=== PATIENT | male | born 1965 | race Caucasian/White ===

== ENCOUNTER 2021-12-19 14:52 | Emergency (ER) | payer OTHER, SELFPAY ==
--- NOTE | ~2021-12-19 | XR_ITS ---
EXAM: XR shoulder LT min 2V DATE: 12/19/2021 16:35 HISTORY: NKI, LT STIFF NECK/SHOULDER . COMPARISON: None available. FINDINGS: Normal mineralization. No fracture or dislocation. No lytic or blastic lesion. Joint space s are maintained. No erosion or periosteal change. Soft tissues within normal limits. IMPRESSION: No acute osseous finding in the left shoulder. Reviewed, dictated and finalized at location K.
--- NOTE | ~2021-12-19 | XR_ITS ---
EXAM: XR cervical spine 4-5V DATE: 12/19/2021 16:35 HISTORY: NKI, LT STIFF NECK/SHOULDER . COMPARISON: None available. FINDINGS: Craniocervical association and atlantoaxial joint are aligned, with atlantoaxial degenerat renard change. No prevertebral soft tissue swelling. Cervical spine straightening as can occur with spas m or positioning. Vertebral bodies are aligned. Mild vertebral body height loss at C5. Mild disc spac e narrowing at C5-6 and C6-7. Anterior bridging osteophyte at C2-3. Lower cervical spine facet sclero sis. Cervicothoracic junction poorly visualized in the lateral view. IMPRESSION: Limited evaluation of the cervicothoracic junction in the lateral view. Mild vertebral kyaw dy height loss at C5. Mild multilevel degenerative disc disease and facet arthropathy. Reviewed, dictated and finalized at location K. IMPRESSION: Limited evaluation of the cervicothoracic junction in the lateral v iew. Mild vertebral body height loss at C5. Mild multilevel degenerative disc d isease and facet arthropathy.
[2021-12-19 15:00] VITALS: BP 164/92; PULSE 53; RESP 18; TEMP 36.9; O2SAT 100
--- NOTE | 2021-12-19 16:04 | ED.NECK ---
HPI - Neck Pain/Injury General Chief Complaint: Neck Pain/Injury Stated Complaint: poss pinched nerve in neck Time Seen by Provider: 12/19/21 15:20 Source: patient, RN notes reviewed and old records reviewed Mode of arrival: ambulatory Limitations: no limitations History of Present Illness HPI Narrative: 56 year old male who presents to [facility] care with complaints of left shoulder pain and left neck pain that he awoke with on the Friday morning. Patient denies any injury to his neck or shoulder. Patient has been taking some Ibuprofen and Aleve for his discomfort and used heat to area which has helped his discomfort but has not completed resolved his pain. Patient concerned he has pinched nerve in his neck, states that pain has improved but sme still there and at times he has some tingling in his right thumb. Patient has full ROM of left arm with strong pulses to left arm and brisk capillary refill. MD complaint: neck pain and other (left shoulder pain) Onset (ago): day(s) (5 days) Severity scale (1-10): 6 Quality: dull and aching Treatments prior to arrival: ibuprofen, naproxen and heat therapy Related Data Home Medications Medication Instructions Recorded Confirmed pravastatin 20 mg tablet 20 mg PO DAILY 12/19/21 12/19/21 Allergies Allergy/AdvReac Type Severity Reaction Status Date / Time No Known Allergies Allergy Unverified 12/19/21 15:06 Review of Systems Review of Systems: CONSTITUTIONAL: Denies fever, chills, or sweats. CARDIOVASCULAR: Denies chest pain, palpitations, or edema. RESPIRATORY: Denies cough or dyspnea. GASTROINTESTINAL: Denies abdominal pain, nausea, vomiting, or diarrhea. GENITOURINARY: Denies dysuria or hematuria. SKIN: Denies rash or itching. MUSCULOSKELETAL: Reports left sided neck pain and left shoulder discomfort NEUROLOGIC: Denies headache, numbness intermittent to left thumb no weakness. All systems reviewed & are unremarkable except as noted in HPI and below PMFSH Past Medical History Medical History (Updated 12/22/21 @ 10:50 by Yasmine Lennon NP) Hyperlipidemia Social History Social History (Updated 12/22/21 @ 10:51 by Yasmine Lennon NP) Smoking status: Never smoker Alcohol intake: current Alcohol use details: social Substance use type: does not use Living arrangements: with family Gender identity (if verbalized by the patient): Male Comments At time of signature, agree with nursing past medical, surgical, social and family history. There is no relevant family history pertinent to the presenting complaint Exam Narrative: GENERAL: Well-appearing, well-nourished, and in no acute distress. HEAD: Normocephalic, atraumatic. EYES: PERRLA and EOMI. NECK: Supple. No lymphadenopathy. CHEST: Clear to auscultation. No respiratory distress. HEART: Regular rate and rhythm. Distal pulses palpable and equal, cap refill <3 seconds ABDOMEN: Soft, nontender, nondistended, normal active bowel sounds, no palpable or pulsatile masses. No CVA tenderness MUSCULOSKELETAL: Normal range of motion and strength in all extremities; 5/5 strength with hip flexion and extension, dorsiflexion and extension, knee flexion and extension, plantar flexion and extension.Normal ROM of upper extremities, strong pulses Normal sensation in dermatomal distributions with sensitivity to light touch and pain. No midline back tenderness to palpation. No paraspinal tenderness.discomfort to left side of neck,and to left shoulder, some tingling to left thumb intermittently.Transfers from lying to sitting to standing. SKIN: Warm, dry, no rash. No ecchymosis, erythema, open wounds to back. NEURO: No focal deficits. Alert and oriented x3. Reflexes intact. Normal gait. PSYCH: Normal mood and affect Course Course Emergency Course: Patient is aware of diagnosis, understands and agrees to treatment plan. Anticipatory guidance given. Patient agrees to follow-up as directed and is aware of re
== END 2021-12-19 17:03 | disposition home or self-care (01) ==
PROVIDERS: Emergency Provider Registered Nurse; PCP Internal Medicine
DX: M25.511 Pain in right shoulder (principal); M54.2 Cervicalgia; E78.2 Mixed hyperlipidemia
CPT/HCPCS: 72050; 73030; 99214; G0463